=== PATIENT | female | born 2000 | race Caucasian/White ===

== ENCOUNTER 2022-06-08 04:10 | Emergency (ER) | payer SELFPAY ==
[2022-06-08] MEDS ORDERED: Ondansetron ODT 4 MG TAB ONE (05:23)
[2022-06-08] MEDS ORDERED: Dexamethasone 4 MG TAB ONE (05:23)
== END 2022-06-08 05:27 | disposition home or self-care (01) ==
LOC: CSHERS 04:10
DX: H92.01 Otalgia, right ear (principal); R09.81 Nasal congestion
CPT/HCPCS: 99282; J8540; Q0162